=== PATIENT | male | born 1995 | race Two or more races ===

== ENCOUNTER 2019-10-14 14:26 | Emergency (ER) | payer OTHER ==
[2019-10-14 14:32] VITALS: BP 143/68
--- NOTE | 2019-10-14 16:34 | ER Document Report ---
ED Flu Like - General Stated Complaint: COUGH,CONGESTION,HEADACHE Time Seen by Provider: 10/14/19 15:48 Mode of Arrival: Ambulatory Information source: Patient Notes: Patient is a 24-year-old male comes emergency room was accompanied by his in another room with complaints of upper respiratory symptoms. Patient states for the past 4 to 5 days he has had congestion with a slight runny nose little dry cough. He has had a little mild headache. A little scratchy throat. Patient does admit to smoking. And he says he is primarily here to get his tested but he felt like it he probably should be as well since he started with the symptoms. Patient is an [employer]. TRAVEL OUTSIDE OF THE [place] IN LAST 30 DAYS: No - HPI Onset: Last week Timing/Duration: Constant Quality of pain: Achy Severity: Mild Pain Level: 1 CO exposure: No Associated symptoms: Body/muscle aches, Chills, Nonproductive cough, Rhinnorhea. denies: Fever, Sore throat Similar symptoms previously: No Recently seen / treated by doctor: No - Related Data Allergies/Adverse Reactions: No Known Allergies Allergy (Verified 10/14/19 16:28) Past Medical History - General Information source: Patient - Social History Smoking Status: Current Every Day Smoker Cigarette use (# per day): Yes - Half pack Chew tobacco use (# tins/day): No Smoking Education Provided: Yes Frequency of alcohol use: None Drug Abuse: None Lives with: Family Family History: Reviewed & Not Pertinent Review of Systems - Review of Systems Constitutional: See HPI, Chills, Weakness EENT: See HPI Cardiovascular: No symptoms reported Respiratory: No symptoms reported Gastrointestinal: No symptoms reported Genitourinary: No symptoms reported Male Genitourinary: No symptoms reported Musculoskeletal: No symptoms reported Skin: No symptoms reported Hematologic/Lymphatic: No symptoms reported Neurological/Psychological: No symptoms reported -: Yes All other systems reviewed and negative Physical Exam - Vital signs Vitals: Temp Pulse Resp BP Pulse Ox 98.2 F 74 16 143/68 H 99 10/14/19 14:31 10/14/19 14:31 10/14/19 14:31 10/14/19 14:31 10/14/19 14:31 Interpretation: Hypertensive - Notes Notes: PHYSICAL EXAMINATION: GENERAL: Well-appearing, well-nourished and in no acute distress. HEAD: Atraumatic, normocephalic. EYES: Pupils equal round and reactive to light, extraocular movements intact, sclera anicteric, conjunctiva are normal. ENT: Examination head and upper airway showed nasal mucosa mildly erythematous and edematous with no rhinorrhea noted. No frontal maxillary sinus tenderness to palpation. Bilateral TMs appear normal no retraction or bulging. Posterior pharynx shows no erythema no exudate uvula is midline with no erythema there is no drainage in the posterior pharynx. NECK: Normal range of motion, supple without lymphadenopathy LUNGS: Breath sounds clear to auscultation bilaterally and equal. No wheezes rales or rhonchi. HEART: Regular rate and rhythm without murmurs Musculoskeletal: Normal range of motion, no pitting or edema. No cyanosis. NEUROLOGICAL: . Normal speech, normal gait. Normal sensory, motor exams PSYCH: Normal mood, normal affect. SKIN: Warm, Dry, normal turgor, no rashes or lesions noted. Course - Re-evaluation Re-evalutation: 10/14/19 16:32 I instructed patient that at this point time he should go home and self isolate until such time as he gets the results of his test back. I have informed him that it takes anywhere from 4 to 5 days for the test results come back. They should contact the medical records or they will be called if it is a positive. Highly suggest in 5 days calling or going by medical records to get a report. - Vital Signs Vital signs: Temp Pulse Resp BP Pulse Ox 98.2 F 74 16 143/68 H 99 10/14/19 16:29 10/14/19 14:31 10/14/19 14:31 10/14/19 14:31 10/14/19 14:31 Discharge - Discharge Clinical Impression: Upper respiratory infection Qualifiers: URI type: unspecified viral URI Qualified Code(s): J06.9 - Acute upper respiratory infection, unspecified Condition: Stable Disposition: HOME, SELF-CARE Instructions: Acetaminophen, Upper Respiratory Illness ([facility]), Viral Syndrome ([facility]) Additional Instructions: As we discussed you should go home and act as though you have been exposed to the coronavirus. You should self quarantine until such time as you get the results back of your test which would include being positive. Since your also display any symptoms both that you should do the same. The testing now stated they were from 4 to 6 days because of the shortage of the reagents so if after 6 days you have not heard anything in chains are it was negative but if you must know 100% you go to medical records here at the hospital after that period of time and they can give you the result. My understanding is the health department is coming back all positives as well as occasionally the hospital is doing the same. Should you have any concerns or problems or your symptoms worsen always feel free to return to ER for reevaluation. Forms: Special Work Note
== END 2019-10-14 17:00 | disposition home or self-care (01) ==
LOC: ER 14:26
DX: J06.9 Acute upper respiratory infection, unspecified (principal); B97.89 Other viral agents as the cause of diseases classified elsewhere; R05 Cough; R09.89 Other specified symptoms and signs involving the circulatory and respiratory systems; R51 Headache; M79.10 Myalgia, unspecified site; R68.83 Chills (without fever); F17.210 Nicotine dependence, cigarettes, uncomplicated; R53.1 Weakness; Z20.828 Contact with and (suspected) exposure to other viral communicable diseases
CPT/HCPCS: 99283; 87635; C9803